=== PATIENT | female | born 1970 | race Caucasian/White ===

== ENCOUNTER 2016-12-06 14:04 | Outpatient (CLI) | payer BC | END 2016-12-06 14:05 | disposition home or self-care (01) | DX: Z51.81 Encounter for therapeutic drug level monitoring (principal); E55.9 Vitamin D deficiency, unspecified; Z13.29 Encounter for screening for other suspected endocrine disorder ==

== ENCOUNTER 2017-07-08 16:44 | Emergency (ER) | payer BC, OTHER ==
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
[2017-07-08] MEDS ORDERED: HYDROmorphone 1 MG/ML CARPUJECT IM STA (19:04)
[2017-07-08] MEDS ORDERED: diazePAM 5 MG TABLET PO STA (19:04)
[2017-07-08] MEDS ORDERED: KETOROLAC 60 MG/2 ML VIAL IM STA (19:04)
[2017-07-08] MEDS ORDERED: DEXAMETHASONE 10 MG/ML VIAL PO STA (19:05)
[2017-07-08] MEDS ORDERED: diazePAM 5 MG TABLET PO ONE (19:15)
[2017-07-08] MEDS ORDERED: DEXAMETHASONE 10 MG/ML VIAL ONE (19:15)
[2017-07-08] MEDS ORDERED: KETOROLAC 60 MG/2 ML VIAL ONE (19:15)
[2017-07-08] MEDS ORDERED: HYDROmorphone 1 MG/ML CARPUJECT ONE (19:15)
[2017-07-08 19:43] VITALS: BP 126/85
== END 2017-07-08 19:42 | disposition home or self-care (01) ==
LOC: ED 16:44
DX: S39.012A Strain of muscle, fascia and tendon of lower back, initial encounter (principal); X58.XXXA Exposure to other specified factors, initial encounter; G89.29 Other chronic pain
CPT/HCPCS: 96372; 99283; A9270; J1170

== ENCOUNTER 2019-09-28 22:00 | Emergency (ER) | payer OTHER ==
[2019-09-28] MEDS ORDERED: BUFFERED LIDOCAINE 10 ML SYRINGE SUBQ STA (22:59)
--- NOTE | 2019-09-28 23:30 | CT Report ---
Reason: concussion brief LOC Procedure Date: 09/28/2019 Accession Number: [id number] / [id number] Procedure: CT - HEAD WO CPT Code: Final Report FULL RESULT: EXAM: CT HEAD EXAM DATE: 09/28/2019 11:18 PM. CLINICAL HISTORY: Concussion brief LOC. Fell and hit head. COMPARISON: None. TECHNIQUE: Multiaxial CT images were obtained from the foramen magnum to the vertex. Reformats: Sagittal and coronal. IV contrast: None. In accordance with CT protocol optimization, one or more of the following dose reduction techniques were utilized for this exam: automated exposure control, adjustment of mA and/or KV based on patient size, or use of iterative reconstructive technique. FINDINGS: Parenchyma: No intraparenchymal hemorrhage. No evidence of mass, midline shift, or CT findings of infarction. Alonso-white differentiation is distinct. Extraaxial Spaces: Normal for age. No subdural or epidural collections identified. Ventricles: Normal in size and position. Sinuses and Orbits: Imaged paranasal sinuses, orbits, and mastoids show no significant abnormality. Bones: No evidence of fracture or calvarial defect. Other: None. IMPRESSION: 1. No acute intracranial abnormality. RADIA
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
[2019-09-29] MEDS ORDERED: TETANUS/DIPHTHERIA/PERTUSSIS 0.5 ML SYRINGE IM ONE (00:27)
[2019-09-29 00:36] VITALS: BP 140/87
== END 2019-09-29 00:39 | disposition home or self-care (01) ==
LOC: ED 22:00
DX: S06.0X1A Concussion with loss of consciousness of 30 minutes or less, initial encounter (principal); S51.011A Laceration without foreign body of right elbow, initial encounter; W01.0XXA Fall on same level from slipping, tripping and stumbling without subsequent striking against object, initial encounter; Y93.E5 Activity, floor mopping and cleaning; Y92.009 Unspecified place in unspecified non-institutional (private) residence as the place of occurrence of the external cause; Z23 Encounter for immunization; M54.9 Dorsalgia, unspecified; G89.29 Other chronic pain
CPT/HCPCS: 12001; 70450; 90471